=== PATIENT | male | born 1995 | race Caucasian/White ===

== ENCOUNTER 2017-06-06 21:55 | Emergency (ER) | payer OTHER | END 2017-06-06 22:21 | disposition home or self-care (01) | LOC: SCSER 21:55 | DX: S01.81XA Laceration without foreign body of other part of head, initial encounter (principal); W51.XXXA Accidental striking against or bumped into by another person, initial encounter; Y93.67 Activity, basketball | CPT/HCPCS: 12011 ==

== ENCOUNTER 2017-06-19 12:36 | Emergency (ER) | payer OTHER ==
[2017-06-19] MEDS ORDERED: Adacel (T-DAP) 0.5 ML VIAL ONE (12:50)
[2017-06-19] MEDS ORDERED: Lidocaine 1% w/Epinephrine 1:100K 20 ML VIAL ONE (13:38)
[2017-06-19] MEDS ORDERED: Lidocaine 1% 20 ML MDV ONE (13:42)
--- NOTE | 2017-06-19 14:59 | RAD ---
TWO VIEWS SOFT TISSUE NECK: HISTORY: Dog bite. FINDINGS: AP and lateral views of soft tissue neck are obtained. There appears to be some gas in the submandibular region, especially on the right. This is anterior to the right of the hyoid bone. No other significant abnormality is seen. IMPRESSION: Areas of soft tissue injury in the submandibular region and to the right of midline. POS: [facility]
--- NOTE | 2017-06-19 15:02 | RAD ---
LEFT HAND THREE VIEWS: History: 22-year-old male with history of dog bite. FINDINGS: There is some soft tissue air noted around the middle finger, primarily at the metacarpal phalangeal joint level. Some of this air extends proximally along the third metacarpal. No evidence for acute fr acture or dislocation. No foreign body. IMPRESSION: Soft tissue injury with soft tissue gas primarily involving the third finger, mostly at the metacarpa l phalangeal region. POS: [facility]
--- NOTE | 2017-06-19 15:03 | RAD ---
THREE VIEWS RIGHT HAND: History: 22-year-old who was bit by a dog. FINDINGS: AP, lateral, and oblique views of the right hand obtained. The right hand is unremarkable. No evidence of fractures, subluxations, or bony lesions seen. IMPRESSION: Normal three views right hand. POS: [facility]
== END 2017-06-19 14:15 | disposition home or self-care (01) ==
LOC: SCSER 12:36
DX: S11.95XA Open bite of unspecified part of neck, initial encounter (principal); S11.93XA Puncture wound without foreign body of unspecified part of neck, initial encounter; S60.512A Abrasion of left hand, initial encounter; S60.511A Abrasion of right hand, initial encounter; S80.212A Abrasion, left knee, initial encounter; W54.0XXA Bitten by dog, initial encounter
CPT/HCPCS: 12001; 70360; 90471; 90715; J2001

== ENCOUNTER 2017-06-29 08:29 | Emergency (ER) | payer OTHER | END 2017-06-29 08:47 | disposition home or self-care (01) | LOC: SCSER 08:29 | DX: S11.91XD Laceration without foreign body of unspecified part of neck, subsequent encounter (principal); W54.0XXD Bitten by dog, subsequent encounter ==